=== PATIENT | female | born 1985 | race Two or more races ===

== ENCOUNTER 2017-11-16 09:05 | Emergency (ER) | payer MEDICAID ==
[~2017-11-16] VITALS: Ht 160 cm; Wt 68.5 kg
[2017-11-16 09:19] VITALS: Ht 160 cm; Wt 68.5 kg
[2017-11-16 11:22] VITALS: BP 125/74
== END 2017-11-16 11:23 | disposition home or self-care (01) ==
LOC: ED 09:05
DX: S22.31XA Fracture of one rib, right side, initial encounter for closed fracture (principal); Z88.1 Allergy status to other antibiotic agents; W10.9XXA Fall (on) (from) unspecified stairs and steps, initial encounter; Y93.89 Activity, other specified; Y92.89 Other specified places as the place of occurrence of the external cause; Y99.8 Other external cause status